=== PATIENT | female | born 1970 | race Caucasian/White ===

== ENCOUNTER 2024-12-26 08:51 | Emergency (ER) | payer OTHER ==
[~2024-12-26] VITALS: Ht 170.2 cm; Wt 102.1 kg
[2024-12-26] MEDS ORDERED: OCTREOTIDE ACETATE 0.05 MG/ML AMP IV STA (09:09)
[2024-12-26 09:15] LABS: BASOPHILS % 0.6 % (0.0-1.0); EOSINOPHILS # (AUTO) 0.1 (0.0-0.4); EOSINOPHILS % 1.6 % (0.0-6.0); HEMATOCRIT 45.7 % (34.2-44.1); HEMOGLOBIN 16.1 g/dL (12.0-16.0); LYMPHOCYTES # (AUTO) 1.3 (1.0-3.2); MEAN CORPUSCULAR HEMOGLOBIN 32.4 pg (28-32); MEAN CORPUSCULAR HGB CONC 35.2 g/dL (31-35); MONOCYTES # (AUTO) 0.6 (0.2-0.8); MONOCYTES % 8.6 % (4.4-11.3); NEUTROPHILS % 70.8 % (38.7-80.0); PLATELET COUNT 169 x10e3/uL (140-360); RED BLOOD COUNT 4.97 x10e6/uL (3.6-5.1); RED CELL DISTRIBUTION WIDTH 11.2 % (11.7-14.4); WHITE BLOOD COUNT 7.06 x10e3/uL (4.8-10.8)
[2024-12-26] MEDS ORDERED: OCTREOTIDE ACETATE 400 MCG in SODIUM CHLORIDE 0.9% 250ML 200 ML IV SCH (09:15)
[2024-12-26 09:28] LABS: INR 0.93
[2024-12-26 09:29] LABS: PARTIAL THROMBOPLASTIN TIME 26.9 seconds (23.8-35.5)
[2024-12-26 09:33] LABS: ETHANOL 167.3 mg/dL (0.0-10.0)
[2024-12-26] MEDS: LORAZEPAM INJ 2 MG/ML VIAL IV ONE (09:33)
[2024-12-26] MEDS: ONDANSETRON HCL INJ 2MG/ML 2ML 2 MG/ML VIAL IV STA (09:34)
[2024-12-26] MEDS: SODIUM CHLORIDE 0.9% 1000ML 1,000 ML IV STA ×2 (09:34→12:16)
[2024-12-26 09:35] LABS: ACETAMINOPHEN < 3.0 ug/mL (10-30); ALBUMIN 3.9 g/dL (3.5-5.0); ALBUMIN/GLOBULIN RATIO 0.9 (0.8-2.0); ANION GAP 19.2 mmol/L (8-16); BILIRUBIN,TOTAL 0.8 mg/dL (0.2-1.2); CALCIUM 9.4 mg/dL (8.4-10.2); CREATININE, SERUM 0.78 mg/dL (0.57-1.11); MAGNESIUM 1.9 MG/DL (1.3-2.1); POTASSIUM 4.2 mmol/L (3.5-5.1); SALICYLATE < 5.0 mg/dL (0-30); TOTAL PROTEIN 8.1 g/dL (6.5-8.1)
[2024-12-26 09:40] LABS: TROPONIN I 0.07 ng/mL (0-0.300)
[2024-12-26 10:21] LABS: AMPHETAMINES SCREEN,URINE NEGATIVE (NEGATIVE); BENZODIAZEPINES SCREEN,URINE POSITIVE (NEGATIVE); CANNABINOIDS SCREEN,URINE NEGATIVE (NEGATIVE); COCAINE SCREEN,URINE NEGATIVE (NEGATIVE); METHADONE SCREEN, URINE NEGATIVE (NEGATIVE); OPIATES SCREEN,URINE NEGATIVE (NEGATIVE); PHENCYCLIDINE SCREEN,URINE NEGATIVE (NEGATIVE)
[2024-12-26] MEDS: PROMETHAZINE 12.5MG/ NACL 0.9% 50 ML IV ONE (10:29)
[2024-12-26] MEDS: PROMETHAZINE 12.5MG/ NACL 0.9% 12.5 MG/50 ML BAG IV ONE (10:30)
[2024-12-26 12:16] VITALS: PULSE 91; RESP 14; TEMP 98.4; O2SAT 96
[2024-12-26] MEDS ORDERED: PANTOPRAZOLE SO40 MG PO (14:33)
[2024-12-26] MEDS ORDERED: PHENERGAN SUPP25 MG PR (14:33)
[2024-12-26] MEDS ORDERED: ONDANSETRON ODT4 MG PO (14:33)
== END 2024-12-26 14:44 | disposition home or self-care (01) ==
LOC: ER 08:54
DX: R11.2 Nausea with vomiting, unspecified (principal); F10.10 Alcohol abuse, uncomplicated; R10.9 Unspecified abdominal pain; I10 Essential (primary) hypertension; F41.9 Anxiety disorder, unspecified; F31.9 Bipolar disorder, unspecified; Z98.84 Bariatric surgery status; F17.290 Nicotine dependence, other tobacco product, uncomplicated
CPT/HCPCS: 36415; 71045; 74177; 80053; 80307; 80320; 80329 ×2; 83690; 83735; 84484; 85025; 85610; 85730; 93005; 99284; J2060; J2405; J2470; J2550; J7030

== ENCOUNTER 2025-01-01 10:51 | Inpatient (IN) | payer OTHER ==
[~2025-01-01] VITALS: Ht 167.6 cm; Wt 95.3 kg
[~2025-01-01 10:51] MED LIST: ONDANSETRON ODT4 MG PO; PANTOPRAZOLE SO40 MG PO; PHENERGAN SUPP25 MG PR
[2025-01-01 11:25] VITALS: TEMP 97.8
[2025-01-01] MEDS: FAMOTIDINE 20 MG/2 ML VIAL IV STA (12:34)
[2025-01-01] MEDS: ONDANSETRON HCL INJ 2MG/ML 2ML 2 MG/ML VIAL IV STA ×2 (12:34→16:03)
[2025-01-01 12:35] LABS: HEMOGLOBIN 17.9 g/dL (12.0-16.0); MEAN CORPUSCULAR HEMOGLOBIN 31.8 pg (28-32); MEAN CORPUSCULAR HGB CONC 35.1 g/dL (31-35); MEAN CORPUSCULAR VOLUME 90.6 fL (81-99); RED BLOOD COUNT 5.63 x10e6/uL (3.6-5.1); WHITE BLOOD COUNT 8.42 x10e3/uL (4.8-10.8)
[2025-01-01] MEDS: SODIUM CHLORIDE 0.9% 1000ML 1,000 ML IV ONE (12:35)
[2025-01-01 12:36] LABS: BASOPHILS % 0.4 % (0.0-1.0); EOSINOPHILS % 0.1 % (0.0-6.0); LYMPHOCYTES # (AUTO) 1.2 (1.0-3.2); LYMPHOCYTES % 14.1 % (18.0-39.1); MONOCYTES # (AUTO) 0.7 (0.2-0.8); MONOCYTES % 8.4 % (4.4-11.3); NEUTROPHILS # (AUTO) 6.5 (2.1-6.9); NEUTROPHILS % 76.6 % (38.7-80.0); PLATELET COUNT 177 x10e3/uL (140-360); RED CELL DISTRIBUTION WIDTH 11.6 % (11.7-14.4)
[2025-01-01] MEDS ORDERED: MAGNESIUM/ALUMINUM/SIMETHICONE 30 ML UDC ONE (13:09)
[2025-01-01] MEDS ORDERED: LIDOCAINE VISC 2% SOLN 15 ML UDC ONE (13:09)
[2025-01-01] MEDS ORDERED: BELLADONNA ALK/PHENOBARBITAL 5 ML UDC ONE (13:09)
[2025-01-01] MEDS: DONNATAL/LIDOCAINE/MAALOX 30 ML SUSP PO ONE (13:10)
[2025-01-01 13:22] LABS: BILIRUBIN,URINE SMALL (NEGATIVE); CLARITY,URINE CLEAR (CLEAR); COLOR,URINE YELLOW (YELLOW); GLUCOSE, URINE NEGATIVE (NEGATIVE); KETONES,URINE 2+ (NEGATIVE); LEUKOCYTE ESTERASE ,URINE NEGATIVE (NEGATIVE); NITRITE,URINE NEGATIVE (NEGATIVE); PH,URINE 6 (5 - 7)
[2025-01-01 13:23] LABS: BACTERIA,URINE FEW /HPF; EPITHELIAL CELLS,URINE MANY /LPF; PROTEIN,URINE DIPSTICK 2+ (NEGATIVE); URINE UROBILINOGEN 1 mg/dL (0.2 - 1); WBC,URINE (MAN) 0-5 /HPF (0-5)
[2025-01-01 14:09] LABS: ANION GAP 20.4 mmol/L (8-16); POTASSIUM 3.4 mmol/L (3.5-5.1)
[2025-01-01 14:10] LABS: BILIRUBIN,TOTAL 0.9 mg/dL (0.2-1.2); CALCIUM 8.8 mg/dL (8.4-10.2); CREATININE, SERUM 0.8 mg/dL (0.57-1.11)
[2025-01-01 14:11] LABS: ALBUMIN 3.9 g/dL (3.5-5.0); ALBUMIN/GLOBULIN RATIO 1.1 (0.8-2.0); TOTAL PROTEIN 7.5 g/dL (6.5-8.1)
[2025-01-01 14:13] LABS: ETHANOL < 10.0 mg/dL (0.0-10.0)
[2025-01-01] MEDS ORDERED: IOPAMIDOL 370 MG/ML 100 ML INFUS..BTL INJ ONE (14:14)
[2025-01-01 14:39] LABS: TROPONIN I 0.066 ng/mL (0-0.300)
[2025-01-01] MEDS ORDERED: Morphine 4mg INJECTION 4 MG/ML INJ IV PRN (15:30)
[2025-01-01 15:33] VITALS: PULSE 88; RESP 17
[2025-01-01] MEDS: SODIUM CHLORIDE 0.9% 1000ML 1,000 ML IV SCH (16:03)
[2025-01-01] MEDS: Morphine 4mg INJECTION 4 MG/ML INJ IV ONE (16:04)
[2025-01-01 18:30] VITALS: BP 147/93; PULSE 95; RESP 18; TEMP 98.2; O2SAT 97
[2025-01-01] MEDS: LACTATED RINGER'S 1,000 ML INJ SCH (18:45)
[2025-01-01] MEDS: HYDROMORPHONE 1MG/1ML INJ IV PRN (18:49)
[2025-01-01 20:00] VITALS: BP 146/101; PULSE 103; RESP 18; TEMP 98.2; TEMP 98.7; O2SAT 98
[2025-01-01] MEDS: THIAMINE HCL INJ 100 MG/ML 2ML VIAL IV ONE (21:14)
[2025-01-01] MEDS: ONDANSETRON HCL INJ 2MG/ML 2ML 2 MG/ML VIAL IV PRN (21:24)
[2025-01-02] VITALS (8 sets, daily range): BP systolic 106–147; BP diastolic 73–98; PULSE 95–125; RESP 18–21; TEMP 98.2–99.9; O2SAT 94–98
[2025-01-02] MEDS ORDERED: WELLBUTRIN XL300 MG PO (00:49)
[2025-01-02 06:27] LABS: EOSINOPHILS % 0.1 % (0.0-6.0); HEMATOCRIT 47.3 % (34.2-44.1); HEMOGLOBIN 16.6 g/dL (12.0-16.0); LYMPHOCYTES % 6.6 % (18.0-39.1); MEAN CORPUSCULAR HEMOGLOBIN 31.9 pg (28-32); MEAN CORPUSCULAR HGB CONC 35.1 g/dL (31-35); MONOCYTES % 9.7 % (4.4-11.3); PLATELET COUNT 145 x10e3/uL (140-360); RED BLOOD COUNT 5.2 x10e6/uL (3.6-5.1); RED CELL DISTRIBUTION WIDTH 11.8 % (11.7-14.4); WHITE BLOOD COUNT 12.06 x10e3/uL (4.8-10.8)
[2025-01-02 06:28] LABS: BASOPHILS % 0.2 % (0.0-1.0); LYMPHOCYTES # (AUTO) 0.8 (1.0-3.2); MONOCYTES # (AUTO) 1.2 (0.2-0.8)
[2025-01-02 08:41] LABS: ANION GAP 20.1 mmol/L (8-16); BILIRUBIN,TOTAL 1.4 mg/dL (0.2-1.2); CALCIUM 7.5 mg/dL (8.4-10.2); CREATININE, SERUM 0.76 mg/dL (0.57-1.11); POTASSIUM 4.1 mmol/L (3.5-5.1)
[2025-01-02 08:42] LABS: ALBUMIN 3.2 g/dL (3.5-5.0); ALBUMIN/GLOBULIN RATIO 0.9 (0.8-2.0); TOTAL PROTEIN 6.6 g/dL (6.5-8.1)
[2025-01-02] MEDS: HYDROMORPHONE 1MG/1ML INJ IV PRN (12:42)
[2025-01-03] VITALS (9 sets, daily range): BP systolic 101–140; BP diastolic 68–82; PULSE 107–125; RESP 18–22; TEMP 97.7–100.8; O2SAT 92–99
[2025-01-03 05:46] LABS: BASOPHILS # (AUTO) 0.1 (0.0-0.1); BASOPHILS % 0.3 % (0.0-1.0); EOSINOPHILS % 0.1 % (0.0-6.0); HEMATOCRIT 45.7 % (34.2-44.1); HEMOGLOBIN 16.2 g/dL (12.0-16.0); LYMPHOCYTES # (AUTO) 0.9 (1.0-3.2); LYMPHOCYTES % 5.8 % (18.0-39.1); MEAN CORPUSCULAR HEMOGLOBIN 32.4 pg (28-32); MEAN CORPUSCULAR HGB CONC 35.4 g/dL (31-35); MEAN CORPUSCULAR VOLUME 91.4 fL (81-99); MONOCYTES # (AUTO) 1.6 (0.2-0.8); MONOCYTES % 10.7 % (4.4-11.3); NEUTROPHILS # (AUTO) 12.5 (2.1-6.9); NEUTROPHILS % 82.4 % (38.7-80.0); PLATELET COUNT 123 x10e3/uL (140-360); WHITE BLOOD COUNT 15.18 x10e3/uL (4.8-10.8)
[2025-01-03 07:08] LABS: ALBUMIN 2.7 g/dL (3.5-5.0); ALBUMIN/GLOBULIN RATIO 0.9 (0.8-2.0); ANION GAP 15.6 mmol/L (8-16); CREATININE, SERUM 0.77 mg/dL (0.57-1.11); POTASSIUM 3.6 mmol/L (3.5-5.1); TOTAL PROTEIN 5.6 g/dL (6.5-8.1)
[2025-01-03 07:20] LABS: CALCIUM 6.3 mg/dL (8.4-10.2)
[2025-01-03] MEDS: CALCIUM GLUC 1 G/50 ML NACL 50 ML IV ONE (09:35)
[2025-01-03 10:11] LABS: BAND NEUTROPHILS % (MANUAL) 1 %; MONOCYTES % (MANUAL) 2 % (3.4-9.0); NEUTROPHILS % (MANUAL) 97 % (40-74); PLATELET ESTIMATE SLIGHTLY DECREASED
[2025-01-03 10:12] LABS: PLATELET MORPHOLOGY COMMENT NORMAL; RBC MORPHOLOGY COMMENT NORMAL
[2025-01-03] MEDS: IBUPROFEN 400 MG TAB PO PRN (15:32)
[2025-01-03] MEDS ORDERED: AMBIEN10 MG PO (20:40)
[2025-01-03] MEDS: ZOLPIDEM TARTRATE 10 MG TAB PO PRN (22:09)
[2025-01-04] VITALS (8 sets, daily range): BP systolic 120–135; BP diastolic 69–87; PULSE 105–113; RESP 17–22; TEMP 98.1–100.6; O2SAT 93–97
[2025-01-04] MEDS: IBUPROFEN 400 MG TAB PO PRN (01:55)
[2025-01-04 06:23] LABS: BASOPHILS # (AUTO) 0.1 (0.0-0.1); BASOPHILS % 0.6 % (0.0-1.0); EOSINOPHILS % 0.1 % (0.0-6.0); HEMOGLOBIN 13.3 g/dL (12.0-16.0); LYMPHOCYTES # (AUTO) 0.7 (1.0-3.2); LYMPHOCYTES % 7.2 % (18.0-39.1); MEAN CORPUSCULAR HEMOGLOBIN 32.1 pg (28-32); MEAN CORPUSCULAR VOLUME 91.8 fL (81-99); MONOCYTES # (AUTO) 1.5 (0.2-0.8); MONOCYTES % 15.4 % (4.4-11.3); NEUTROPHILS # (AUTO) 7.4 (2.1-6.9); NEUTROPHILS % 75.7 % (38.7-80.0); PLATELET COUNT 116 x10e3/uL (140-360); RED BLOOD COUNT 4.14 x10e6/uL (3.6-5.1); RED CELL DISTRIBUTION WIDTH 11.8 % (11.7-14.4); WHITE BLOOD COUNT 9.84 x10e3/uL (4.8-10.8)
[2025-01-04 06:47] LABS: ALBUMIN 2.3 g/dL (3.5-5.0); ALBUMIN/GLOBULIN RATIO 0.8 (0.8-2.0); ANION GAP 13.9 mmol/L (8-16); BILIRUBIN,TOTAL 2.4 mg/dL (0.2-1.2); CREATININE, SERUM 0.62 mg/dL (0.57-1.11); TOTAL PROTEIN 5.2 g/dL (6.5-8.1)
[2025-01-04 06:51] LABS: POTASSIUM 2.9 mmol/L (3.5-5.1)
[2025-01-04 06:52] LABS: CALCIUM 6.4 mg/dL (8.4-10.2)
[2025-01-04 07:12] LABS: THYROID STIMULATING HORMONE 2.441 uIU/mL (0.350-4.940)
[2025-01-04 07:16] LABS: CHOL/HDL RATIO 3.6 (3.0-3.6)
[2025-01-04] MEDS: POTASSIUM CHLORIDE 20 MEQ TAB CR PO ONE (10:50)
[2025-01-04] MEDS: CALCIUM GLUC 1 G/50 ML NACL 50 ML IV ONE (11:36)
[2025-01-04] MEDS: TRAMADOL HCL 50 MG TAB PO PRN (15:31)
[2025-01-05] VITALS (9 sets, daily range): BP systolic 119–137; BP diastolic 70–85; PULSE 103–114; RESP 18–22; TEMP 97.1–100; O2SAT 93–99
[2025-01-05 06:31] LABS: BASOPHILS # (AUTO) 0.1 (0.0-0.1); BASOPHILS % 0.7 % (0.0-1.0); EOSINOPHILS # (AUTO) 0.1 (0.0-0.4); EOSINOPHILS % 0.5 % (0.0-6.0); HEMATOCRIT 35.3 % (34.2-44.1); HEMOGLOBIN 12.4 g/dL (12.0-16.0); LYMPHOCYTES # (AUTO) 0.8 (1.0-3.2); LYMPHOCYTES % 7.8 % (18.0-39.1); MEAN CORPUSCULAR HEMOGLOBIN 32.1 pg (28-32); MEAN CORPUSCULAR HGB CONC 35.1 g/dL (31-35); MEAN CORPUSCULAR VOLUME 91.5 fL (81-99); MONOCYTES # (AUTO) 1.8 (0.2-0.8); MONOCYTES % 16.8 % (4.4-11.3); NEUTROPHILS # (AUTO) 7.8 (2.1-6.9); NEUTROPHILS % 72.7 % (38.7-80.0); PLATELET COUNT 136 x10e3/uL (140-360); RED BLOOD COUNT 3.86 x10e6/uL (3.6-5.1); RED CELL DISTRIBUTION WIDTH 12.2 % (11.7-14.4); WHITE BLOOD COUNT 10.67 x10e3/uL (4.8-10.8)
[2025-01-05 06:44] LABS: HEPATITIS B CORE IGM (P) Negative; HEPATITIS B SURFACE AG (P) Negative
[2025-01-05 06:45] LABS: HEPATITIS A ANTIBODY IGM (P) Negative; HEPATITIS C ANTIBODY Non Reactive
[2025-01-05 07:12] LABS: ALANINE AMINOTRANSFERASE 48 IU/L (0-55); ALBUMIN 2.3 g/dL (3.5-5.0); ALBUMIN/GLOBULIN RATIO 0.7 (0.8-2.0); ALKALINE PHOSPHATASE 113 IU/L (40-150); ANION GAP 12.8 mmol/L (8-16); BLOOD UREA NITROGEN < 5 mg/dL (7-26); CALCIUM 7.1 mg/dL (8.4-10.2); CARBON DIOXIDE 23 mmol/L (22-29); CHLORIDE 98 mmol/L (98-107); EST GLOMERULAR FILTRATION RATE 108 ML/MIN (>=60); GLUCOSE 117 mg/dL (74-118); LIPASE 359 U/L (8-78); SODIUM 131 mmol/L (136-145); TOTAL PROTEIN 5.6 g/dL (6.5-8.1)
[2025-01-05 07:43] LABS: BUN/CREATININE RATIO 8 (6-25); POTASSIUM 2.8 mmol/L (3.5-5.1)
[2025-01-05 09:14] LABS: BAND NEUTROPHILS % (MANUAL) 2 %; LYMPHOCYTES % (MANUAL) 5 % (19-48); MONOCYTES % (MANUAL) 13 % (3.4-9.0); NEUTROPHILS % (MANUAL) 80 % (40-74); PLATELET ESTIMATE SLIGHTLY DECREASED; PLATELET MORPHOLOGY COMMENT NORMAL; RBC MORPHOLOGY COMMENT NORMAL
[2025-01-05] MEDS: POTASSIUM CHLORIDE 20 MEQ TAB CR PO STA (11:06)
[2025-01-05] MEDS: POTASSIUM CHLORIDE 20MEQ/100ML 100 ML IV ONE (11:07)
[2025-01-05] MEDS: LACTULOSE SYRUP 20 GM/30 ML UDC PO PRN (18:53)
[2025-01-05] MEDS: POTASSIUM CHLORIDE 20 MEQ TAB CR PO SCH (22:01)
[2025-01-05] MEDS: METOPROLOL TARTRATE 25 MG TAB PO SCH (23:17)
[2025-01-06] VITALS (9 sets, daily range): BP systolic 100–141; BP diastolic 71–90; PULSE 85–115; RESP 20–21; TEMP 97.7–101.5; O2SAT 92–98
[2025-01-06] MEDS: MAGNESIUM HYDROXIDE 30 ML UDC PO ONE ×2 (01:59→17:23)
[2025-01-06 06:50] LABS: ANION GAP 14.3 mmol/L (8-16); CALCIUM 7.8 mg/dL (8.4-10.2); CREATININE, SERUM 0.59 mg/dL (0.57-1.11); MAGNESIUM 1.8 MG/DL (1.3-2.1)
[2025-01-06 06:55] LABS: POTASSIUM 3.3 mmol/L (3.5-5.1)
[2025-01-07] VITALS (12 sets, daily range): BP systolic 116–135; BP diastolic 70–81; PULSE 82–107; RESP 17–20; TEMP 97.7–100.3; O2SAT 92–99
[2025-01-07] MEDS: MAGNESIUM HYDROXIDE 30 ML UDC PO STA (01:00)
[2025-01-07] MEDS: FUROSEMIDE INJ 10 MG/ML 4 ML VIAL IV ONE (01:00)
[2025-01-07 05:37] LABS: BASOPHILS % 0.2 % (0.0-1.0); EOSINOPHILS % 0.2 % (0.0-6.0); HEMATOCRIT 34.4 % (34.2-44.1); LYMPHOCYTES # (AUTO) 1.1 (1.0-3.2); LYMPHOCYTES % 6.8 % (18.0-39.1); MEAN CORPUSCULAR HGB CONC 34.9 g/dL (31-35); MEAN CORPUSCULAR VOLUME 91.7 fL (81-99); MONOCYTES # (AUTO) 2.6 (0.2-0.8); MONOCYTES % 15.8 % (4.4-11.3); NEUTROPHILS # (AUTO) 12.4 (2.1-6.9); NEUTROPHILS % 75.2 % (38.7-80.0); PLATELET COUNT 216 x10e3/uL (140-360); RED BLOOD COUNT 3.75 x10e6/uL (3.6-5.1); RED CELL DISTRIBUTION WIDTH 12.4 % (11.7-14.4); WHITE BLOOD COUNT 16.52 x10e3/uL (4.8-10.8)
[2025-01-07] MEDS: ALBUTEROL/IPRATROPIUM 3 ML NEB NEB SCH (06:10)
[2025-01-07] MEDS: ALBUTEROL SULF 0.083% NEB SOLN 3 ML NEB NEB STA (06:10)
[2025-01-07 06:15] LABS: ALBUMIN 2.2 g/dL (3.5-5.0); ALBUMIN/GLOBULIN RATIO 0.6 (0.8-2.0); ANION GAP 14.9 mmol/L (8-16); BILIRUBIN,TOTAL 1.3 mg/dL (0.2-1.2); CALCIUM 7.8 mg/dL (8.4-10.2); CREATININE, SERUM 0.61 mg/dL (0.57-1.11); TOTAL PROTEIN 5.8 g/dL (6.5-8.1)
[2025-01-07 06:16] LABS: POTASSIUM 2.9 mmol/L (3.5-5.1)
[2025-01-07 07:59] LABS: MAGNESIUM 2.1 MG/DL (1.3-2.1); PHOSPHORUS 1.7 MG/DL (2.3-4.7)
[2025-01-07] MEDS: PANTOPRAZOLE SOD 40 MG TABEC PO SCH (08:26)
[2025-01-07 10:19] LABS: LYMPHOCYTES % (MANUAL) 9 % (19-48); MONOCYTES % (MANUAL) 17 % (3.4-9.0); NEUTROPHILS % (MANUAL) 74 % (40-74); PLATELET ESTIMATE ADEQUATE; PLATELET MORPHOLOGY COMMENT NORMAL
[2025-01-07 10:20] LABS: TOXIC GRANULATION MODERATE
[2025-01-07] MEDS: POTASSIUM CHLORIDE 10MEQ EA PO ONE (10:27)
[2025-01-07] MEDS: SODIUM PHOSPHATE 15 MMOL in SODIUM CHLORIDE 0.9% 250ML 250 ML INJ ONE (12:06)
[2025-01-08] VITALS (13 sets, daily range): BP systolic 124–147; BP diastolic 72–96; PULSE 86–107; RESP 18–20; TEMP 97.9–100.2; O2SAT 20–98
[2025-01-08] MEDS: HYDROCODONE/APAP 5MG-325MG TAB PO PRN (02:51)
[2025-01-08 07:44] LABS: BASOPHILS % 0.2 % (0.0-1.0); EOSINOPHILS % 0.2 % (0.0-6.0); HEMATOCRIT 35.9 % (34.2-44.1); HEMOGLOBIN 12.4 g/dL (12.0-16.0); LYMPHOCYTES % 5.8 % (18.0-39.1); MEAN CORPUSCULAR HGB CONC 34.5 g/dL (31-35); MEAN CORPUSCULAR VOLUME 92.5 fL (81-99); MONOCYTES # (AUTO) 2.1 (0.2-0.8); MONOCYTES % 11.5 % (4.4-11.3); NEUTROPHILS # (AUTO) 14.6 (2.1-6.9); NEUTROPHILS % 80.9 % (38.7-80.0); PLATELET COUNT 251 x10e3/uL (140-360); RED BLOOD COUNT 3.88 x10e6/uL (3.6-5.1); RED CELL DISTRIBUTION WIDTH 12.6 % (11.7-14.4)
[2025-01-08 08:30] LABS: ALBUMIN 2.2 g/dL (3.5-5.0); ALBUMIN/GLOBULIN RATIO 0.6 (0.8-2.0); ANION GAP 14.3 mmol/L (8-16); BILIRUBIN,TOTAL 1.2 mg/dL (0.2-1.2); CALCIUM 8.1 mg/dL (8.4-10.2); CREATININE, SERUM 0.58 mg/dL (0.57-1.11)
[2025-01-08 08:33] LABS: POTASSIUM 3.3 mmol/L (3.5-5.1)
[2025-01-08] MEDS: POTASSIUM CHLORIDE 10MEQ EA PO ONE (11:54)
[2025-01-08 12:06] LABS: BAND NEUTROPHILS % (MANUAL) 4 %; LYMPHOCYTES % (MANUAL) 9 % (19-48); MONOCYTES % (MANUAL) 7 % (3.4-9.0); NEUTROPHILS % (MANUAL) 80 % (40-74); PLATELET ESTIMATE ADEQUATE; PLATELET MORPHOLOGY COMMENT NORMAL; RBC MORPHOLOGY COMMENT NORMAL
[2025-01-08 16:36] LABS: BILIRUBIN,URINE NEGATIVE (NEGATIVE); CLARITY,URINE CLEAR (CLEAR); COLOR,URINE YELLOW (YELLOW); GLUCOSE, URINE NEGATIVE (NEGATIVE); KETONES,URINE 1+ (NEGATIVE); LEUKOCYTE ESTERASE ,URINE NEGATIVE (NEGATIVE); NITRITE,URINE NEGATIVE (NEGATIVE); PH,URINE 8.5 (5 - 7); PROTEIN,URINE DIPSTICK 1+ (NEGATIVE); URINE UROBILINOGEN 0.2 mg/dL (0.2 - 1)
[2025-01-08 16:51] LABS: RBC,URINE 0-5 /HPF (0-5); WBC,URINE (MAN) 0-5 /HPF (0-5)
[2025-01-08 16:52] LABS: BACTERIA,URINE RARE /HPF; EPITHELIAL CELLS,URINE MODERATE /LPF
[2025-01-09] VITALS (14 sets, daily range): BP systolic 116–137; BP diastolic 70–85; PULSE 85–99; RESP 17–21; TEMP 97.5–100.5; O2SAT 94–100
[2025-01-09] MEDS ORDERED: IOPAMIDOL 370 MG/ML 100 ML INFUS..BTL INJ ONE (00:24)
[2025-01-09] MEDS: MAGNESIUM HYDROXIDE 30 ML UDC PO PRN (00:36)
[2025-01-09] MEDS: MAGNESIUM HYDROXIDE 30 ML UDC ONE (00:57)
[2025-01-09] MEDS: MAGNESIUM HYDROXIDE 30 ML UDC PO ONE ×2 (02:20→12:11)
[2025-01-09 06:14] LABS: BASOPHILS # (AUTO) 0.1 (0.0-0.1); BASOPHILS % 0.4 % (0.0-1.0); EOSINOPHILS # (AUTO) 0.1 (0.0-0.4); EOSINOPHILS % 0.4 % (0.0-6.0); HEMATOCRIT 35.3 % (34.2-44.1); LYMPHOCYTES # (AUTO) 1.1 (1.0-3.2); LYMPHOCYTES % 6.6 % (18.0-39.1); MEAN CORPUSCULAR HEMOGLOBIN 31.3 pg (28-32); MEAN CORPUSCULAR VOLUME 92.2 fL (81-99); MONOCYTES # (AUTO) 1.6 (0.2-0.8); MONOCYTES % 9.3 % (4.4-11.3); NEUTROPHILS # (AUTO) 13.9 (2.1-6.9); NEUTROPHILS % 81.8 % (38.7-80.0); PLATELET COUNT 266 x10e3/uL (140-360); RED BLOOD COUNT 3.83 x10e6/uL (3.6-5.1); RED CELL DISTRIBUTION WIDTH 12.7 % (11.7-14.4); WHITE BLOOD COUNT 17.01 x10e3/uL (4.8-10.8)
[2025-01-09 06:50] LABS: ANION GAP 15.5 mmol/L (8-16); CALCIUM 8.1 mg/dL (8.4-10.2); CREATININE, SERUM 0.61 mg/dL (0.57-1.11); MAGNESIUM 2.3 MG/DL (1.3-2.1); PHOSPHORUS 2.8 MG/DL (2.3-4.7); POTASSIUM 3.5 mmol/L (3.5-5.1)
[2025-01-09] MEDS: BISACODYL 10 MG SUPP PR ONE (12:12)
[2025-01-09] MEDS: HYDROMORPHONE 1MG/1ML INJ IV PRN (15:27)
[2025-01-09] MEDS: DICYCLOMINE HCL 10 MG CAP PO PRN (15:27)
[2025-01-10] VITALS (14 sets, daily range): BP systolic 99–112; BP diastolic 64–76; PULSE 84–110; RESP 17–18; TEMP 98.2–99.8; O2SAT 94–100
[2025-01-10] MEDS: FUROSEMIDE INJ 10 MG/ML 4 ML VIAL IV STA (00:19)
[2025-01-10] MEDS: MAGNESIUM HYDROXIDE 30 ML UDC PO ONE (02:49)
[2025-01-10 06:17] LABS: BASOPHILS # (AUTO) 0.1 (0.0-0.1); BASOPHILS % 0.4 % (0.0-1.0); EOSINOPHILS # (AUTO) 0.1 (0.0-0.4); EOSINOPHILS % 0.4 % (0.0-6.0); HEMATOCRIT 36.5 % (34.2-44.1); HEMOGLOBIN 12.4 g/dL (12.0-16.0); MEAN CORPUSCULAR HEMOGLOBIN 31.2 pg (28-32); MEAN CORPUSCULAR VOLUME 91.9 fL (81-99); MONOCYTES # (AUTO) 1.3 (0.2-0.8); MONOCYTES % 7.8 % (4.4-11.3); NEUTROPHILS # (AUTO) 13.5 (2.1-6.9); NEUTROPHILS % 83.8 % (38.7-80.0); PLATELET COUNT 298 x10e3/uL (140-360); RED BLOOD COUNT 3.97 x10e6/uL (3.6-5.1); RED CELL DISTRIBUTION WIDTH 12.6 % (11.7-14.4); WHITE BLOOD COUNT 16.07 x10e3/uL (4.8-10.8)
[2025-01-10 06:55] LABS: ALBUMIN 2.2 g/dL (3.5-5.0); ALBUMIN/GLOBULIN RATIO 0.6 (0.8-2.0); ANION GAP 16.4 mmol/L (8-16); CALCIUM 8.4 mg/dL (8.4-10.2); CREATININE, SERUM 0.63 mg/dL (0.57-1.11); MAGNESIUM 2.1 MG/DL (1.3-2.1); TOTAL PROTEIN 6.2 g/dL (6.5-8.1)
[2025-01-10 06:57] LABS: POTASSIUM 3.4 mmol/L (3.5-5.1)
[2025-01-10] MEDS: FUROSEMIDE INJ 10 MG/ML 4 ML VIAL IV SCH (08:48)
[2025-01-10] MEDS: DICYCLOMINE HCL 20 MG TAB PO SCH (08:49)
[2025-01-10] MEDS: BISACODYL 10 MG SUPP PR PRN (11:39)
[2025-01-10] MEDS: HYDROMORPHONE 1MG/1ML INJ IV PRN (16:56)
[2025-01-10] MEDS: OXYCODONE HCL IR 5 MG TAB PO PRN (18:45)
[2025-01-10] MEDS: ZOLPIDEM TARTRATE 10 MG TAB PO PRN (23:53)
[2025-01-11] VITALS (16 sets, daily range): BP systolic 97–124; BP diastolic 54–90; PULSE 77–112; RESP 16–20; TEMP 97.2–98.8; O2SAT 93–100
[2025-01-11 06:31] LABS: BASOPHILS # (AUTO) 0.1 (0.0-0.1); BASOPHILS % 0.7 % (0.0-1.0); EOSINOPHILS # (AUTO) 0.1 (0.0-0.4); EOSINOPHILS % 0.7 % (0.0-6.0); HEMATOCRIT 36.1 % (34.2-44.1); HEMOGLOBIN 12.2 g/dL (12.0-16.0); LYMPHOCYTES # (AUTO) 1.2 (1.0-3.2); LYMPHOCYTES % 7.1 % (18.0-39.1); MEAN CORPUSCULAR HEMOGLOBIN 31.5 pg (28-32); MEAN CORPUSCULAR HGB CONC 33.8 g/dL (31-35); MEAN CORPUSCULAR VOLUME 93.3 fL (81-99); MONOCYTES # (AUTO) 1.1 (0.2-0.8); MONOCYTES % 6.8 % (4.4-11.3); NEUTROPHILS # (AUTO) 13.9 (2.1-6.9); NEUTROPHILS % 83.2 % (38.7-80.0); PLATELET COUNT 330 x10e3/uL (140-360); RED BLOOD COUNT 3.87 x10e6/uL (3.6-5.1); RED CELL DISTRIBUTION WIDTH 12.6 % (11.7-14.4)
[2025-01-11 06:58] LABS: ANION GAP 16.4 mmol/L (8-16); CALCIUM 8.2 mg/dL (8.4-10.2); CREATININE, SERUM 0.66 mg/dL (0.57-1.11)
[2025-01-11 07:09] LABS: POTASSIUM 3.4 mmol/L (3.5-5.1)
[2025-01-11] MEDS: OXYCODONE HCL IR 5 MG TAB PO PRN (13:07)
[2025-01-12] VITALS (13 sets, daily range): BP systolic 92–113; BP diastolic 57–75; PULSE 85–105; RESP 17–20; TEMP 98–99.7; O2SAT 94–97
[2025-01-12] MEDS: POTASSIUM CHLORIDE 10MEQ EA PO STA (01:45)
[2025-01-12 06:19] LABS: BASOPHILS # (AUTO) 0.1 (0.0-0.1); BASOPHILS % 0.6 % (0.0-1.0); EOSINOPHILS # (AUTO) 0.1 (0.0-0.4); EOSINOPHILS % 0.8 % (0.0-6.0); HEMATOCRIT 36.8 % (34.2-44.1); HEMOGLOBIN 12.5 g/dL (12.0-16.0); LYMPHOCYTES # (AUTO) 1.3 (1.0-3.2); LYMPHOCYTES % 8.5 % (18.0-39.1); MEAN CORPUSCULAR HEMOGLOBIN 31.3 pg (28-32); MEAN CORPUSCULAR VOLUME 92.2 fL (81-99); MONOCYTES # (AUTO) 1.3 (0.2-0.8); MONOCYTES % 8.1 % (4.4-11.3); NEUTROPHILS # (AUTO) 12.5 (2.1-6.9); NEUTROPHILS % 80.6 % (38.7-80.0); PLATELET COUNT 330 x10e3/uL (140-360); RED BLOOD COUNT 3.99 x10e6/uL (3.6-5.1); RED CELL DISTRIBUTION WIDTH 12.3 % (11.7-14.4); WHITE BLOOD COUNT 15.44 x10e3/uL (4.8-10.8)
[2025-01-12 06:51] LABS: ALBUMIN 2.2 g/dL (3.5-5.0); ALBUMIN/GLOBULIN RATIO 0.5 (0.8-2.0); ANION GAP 15.1 mmol/L (8-16); BILIRUBIN,TOTAL 0.9 mg/dL (0.2-1.2); CALCIUM 8.3 mg/dL (8.4-10.2); CREATININE, SERUM 0.61 mg/dL (0.57-1.11); POTASSIUM 4.1 mmol/L (3.5-5.1); TOTAL PROTEIN 6.3 g/dL (6.5-8.1)
[2025-01-12 06:58] LABS: B-TYPE NATRIURETIC PEPTIDE2 15.8 pg/mL (0-100)
[2025-01-13] VITALS (10 sets, daily range): BP systolic 91–103; BP diastolic 60–81; PULSE 85–103; RESP 17–20; TEMP 97.7–99.3; O2SAT 97–100
[2025-01-13] MEDS: MAGNESIUM HYDROXIDE 30 ML UDC PO ONE (01:10)
[2025-01-13 06:26] LABS: BASOPHILS # (AUTO) 0.1 (0.0-0.1); BASOPHILS % 0.6 % (0.0-1.0); EOSINOPHILS # (AUTO) 0.1 (0.0-0.4); EOSINOPHILS % 0.7 % (0.0-6.0); LYMPHOCYTES # (AUTO) 1.4 (1.0-3.2); LYMPHOCYTES % 11.6 % (18.0-39.1); MEAN CORPUSCULAR HEMOGLOBIN 31.3 pg (28-32); MEAN CORPUSCULAR HGB CONC 34.2 g/dL (31-35); MEAN CORPUSCULAR VOLUME 91.6 fL (81-99); MONOCYTES % 8.1 % (4.4-11.3); NEUTROPHILS # (AUTO) 9.1 (2.1-6.9); NEUTROPHILS % 76.5 % (38.7-80.0); PLATELET COUNT 372 x10e3/uL (140-360); RED BLOOD COUNT 4.15 x10e6/uL (3.6-5.1); RED CELL DISTRIBUTION WIDTH 12.2 % (11.7-14.4); WHITE BLOOD COUNT 11.86 x10e3/uL (4.8-10.8)
[2025-01-13 06:55] LABS: ALBUMIN 2.4 g/dL (3.5-5.0); ALBUMIN/GLOBULIN RATIO 0.5 (0.8-2.0); ANION GAP 17.5 mmol/L (8-16); BILIRUBIN,TOTAL 0.9 mg/dL (0.2-1.2); CALCIUM 8.8 mg/dL (8.4-10.2); CREATININE, SERUM 0.67 mg/dL (0.57-1.11); POTASSIUM 3.5 mmol/L (3.5-5.1); TOTAL PROTEIN 6.9 g/dL (6.5-8.1)
[2025-01-13] MEDS ORDERED: HYDROMORPHONE 2MG/ML IV PRN (11:00)
[2025-01-13] MEDS: CYCLOBENZAPRINE HCL 10 MG TAB PO PRN (13:08)
[2025-01-13] MEDS ORDERED: LACTULOSE10 GM/151 PO (14:05)
[2025-01-13] MEDS ORDERED: PROTONIX40 MG/ML PO (14:05)
[2025-01-13] MEDS ORDERED: LOPRESSOR25 MG PO (14:05)
[2025-01-13] MEDS ORDERED: CIPRO500 MG PO (14:12)
== END 2025-01-13 16:07 | disposition home or self-care (01) | DRG 438 ==
LOC: ER 11:28 → ERHOLD 15:22 → MED/SURG3 17:51 → OBSVTOIN 18:55
PROVIDERS: ADMIT Internal Medicine; ATTEND Internal Medicine
PROC: 05HC33Z Insertion of Infusion Device into Left Basilic Vein, Percutaneous Approach (ICD-10-PCS; principal; 2025-01-11)
DX: K85.20 Alcohol induced acute pancreatitis without necrosis or infection (principal); I50.31 Acute diastolic (congestive) heart failure; J18.9 Pneumonia, unspecified organism; I11.0 Hypertensive heart disease with heart failure; F10.20 Alcohol dependence, uncomplicated; Y90.0 Blood alcohol level of less than 20 mg/100 ml; E83.51 Hypocalcemia; E87.6 Hypokalemia; F11.21 Opioid dependence, in remission; E86.0 Dehydration; K76.0 Fatty (change of) liver, not elsewhere classified; K59.00 Constipation, unspecified; R30.0 Dysuria; R00.0 Tachycardia, unspecified; F17.290 Nicotine dependence, other tobacco product, uncomplicated; F31.9 Bipolar disorder, unspecified; F41.8 Other specified anxiety disorders; E66.9 Obesity, unspecified; Z68.33 Body mass index [BMI] 33.0-33.9, adult; Z71.3 Dietary counseling and surveillance; Z71.81 Spiritual or religious counseling; Z79.899 Other long term (current) drug therapy
CPT/HCPCS: 36415; 71045; 71046; 74177; 76700; 80048; 80053; 80061; 80320; 81001; 82140; 82607; 83690; 83735; 83880; 84100; 84443; 84484; 85025; 87086; 93005; 93306; 94640; 94799; 96361; 99252; 99284; J0692; J1171; J1308; J1938; J2270; J2405; J2470; J2543; J3411; J3480; J7030; J7050; Q9967